=== PATIENT | male | born 1970 ===

== ENCOUNTER 2018-08-09 05:58 | Day surgery (SDC) | payer MEDICAID ==
[2018-08-08 10:57] VITALS: BMI 27.4
[2018-08-09] MEDS ORDERED: Clindamycin 600mg/50ml NS 0 MG/0 ML BAG IVPB ONE (07:29)
[2018-08-09] MEDS ORDERED: Bacitracin 50,000 UNIT in Sodium Chloride 0.9% Irrig 1,000 ML IR SCH (07:30)
[2018-08-09 07:34] LABS: EOS % 0.7 % (0.0-4.0); HEMOGLOBIN 14.2 g/dL (12.0-18.0); LYMPH # 1.6 K/uL (1.0-4.3); LYMPH % 52.8 % (20.0-40.0); MEAN CELL VOLUME 85.3 fL (80.0-94.0); MEAN CORPUSCULAR HEMOGLOBIN 29.2 pg (27.0-31.0); MEAN CORPUSCULAR HGB CONC 34.2 g/dL (33.0-37.0); MEAN PLATELET VOLUME 7.6 fL (7.2-11.7); MONO # 0.4 K/uL (0.0-0.8); MONO % 14.2 % (0.0-10.0); NEUT # 0.9 K/uL (1.8-7.0); NEUT % 28.9 % (50.0-75.0); RBC 4.87 Mil/uL (4.40-5.90); WHITE BLOOD COUNT 3.1 K/uL (4.8-10.8)
[2018-08-09 07:37] LABS: BASO % 1.3 % (0.0-2.0)
[2018-08-09 07:41] LABS: BLOOD UREA NITROGEN 15 mg/dL (9-20); CALCIUM 8.6 mg/dl (8.6-10.4); GFR NON-AFRICAN AMERICAN > 60
[2018-08-09] MEDS ORDERED: cefTRIAXone 1 gm 0 GM/0 ML BAG IVPB ONE (07:43)
[2018-08-09] MEDS ORDERED: Midazolam 2 MG/2 ML VIAL ONE (07:47)
[2018-08-09] MEDS ORDERED: Propofol 10 mg/ml Inj (20 ML) ONE (07:47)
[2018-08-09] MEDS ORDERED: Gentamicin 160 MG in Sodium Chloride 0.9% 100 ML IVPB ONE (07:50)
[2018-08-09] MEDS ORDERED: Vancomycin 1 gm/D5W 200 ml 1 GM/200 ML BAG IVPB ONE (08:02)
[2018-08-09] MEDS ORDERED: Neostigmine Methylsulfate 3mg/3ml Syringe IV ONE (10:38)
[2018-08-09] MEDS ORDERED: Lactated Ringer's 1,000 ML IV ONE (10:53)
[2018-08-09] MEDS ORDERED: HYDROmorphone 0.5 mg/0.5 ml ISec IVP PRN (10:56)
[2018-08-09] MEDS ORDERED: Dexamethasone 4 mg/1 ml IVP PRN (10:56)
[2018-08-09 13:55] VITALS: RESP 16
[2018-08-09 16:41] VITALS: BP 152/88; PULSE 102; TEMP 97.6; O2SAT 98
--- NOTE | 2018-08-12 20:50 | CARD ---
APPROVED REPORT Date of service: 08/09/2018 EKG Measurement Heart [id number] <Conclusion> Normal sinus rhythm Normal ECG
--- NOTE | 2018-08-25 08:58 | HP ---
UROLOGY ADMISSION HISTORY AND PHYSICAL REASON FOR ADMISSION: Treatment of erectile dysfunction. The patient has multiple medical issues, particularly diabetes mostly. He has erectile dysfunction secondary to this. We tried multiple medical therapies. All the therapies have been tried with no success. We tried injection therapy with some improvement and success, but the patient is very uncomfortable with the needle, with the erection, painful. He is not successful. I tried to encouraging the patient to try vacuum therapy. He is not comfortable with this either. After multiple attempts and multiple conversations with the patient, he is not improving at all. Given his underlying diabetes, I discussed various options with him. He is now here today for inflatable penile prosthesis insertion. Insertion of an inflatable penile 3-piece device. The past medical and surgical history is listed on the chart. Underlying diabetes. No history of CT or CVA. Socially he is , comes to the hospital with his . Otherwise unremarkable . MEDICATIONS: See the chart. ALLERGIES: NONE. PHYSICAL EXAMINATION: GENERAL: Well-nourished male in no apparent distress. VITAL SIGNS: Within normal limits and included in the chart. LUNGS: Clear. HEART: Normal S1 and S2 with no cervical or axillary lymphadenopathy. ABDOMEN: Overall soft. GENITOURINARY: Normal male phallus. He actually has a mild curvature in his penis. Peyronie's . He has a normal sized male phallus. No testicular mass. His rectal exam is deferred now but previous rectal exam, 10-20 g prostate, smooth, normal. LABS: See the chart including his hemoglobin A1c. DIAGNOSES: 1. Underlying diabetes. 2. Erectile dysfunction secondary to the diabetes. ASSESSMENT AND PLAN: With this very pleasant gentleman we discussed options. He has not progressed with oral medication. He has not progressed with injection therapies. After discussing options with the patient, we discussed many options including vacuum erection device. We discussed using the injection medicine. He is not progressing. He is fairly unhappy. We have been discussing options with the patient and he is here today. We made arrangements with the [employer], the [employer] company for insertion of an inflatable 3-piece device. In preparation for today, we have had the patient see medical doctor for medical clearance. In preparation for today given the difficult nature and the fact that he has been on injection therapy and my concerns with the curvature of his penis and mild Peyronie's, I have arranged a second board certified urologist, to assist me for the procedure. In preparation for today, we will go ahead the patient prepare himself with friends on the day before. At this point, the plan is as follows: 1. Antibiotic prophylaxis. 2. We will plan for insertion of inflatable penile prosthesis. 3. Risks and benefits discussed with the patient. I discussed the risks with the patient of this not working well. We discussed risk and infection and needing removal. I also discussed with him that we have to proceed the patient by medications. Proceed by shortening of penis. But in no way will be lengthening or shortening of penis. We will follow. All details explained in length. Tree Rodríguez MD
--- NOTE | 2018-08-25 09:09 | OP ---
PROCEDURE DATE: 08/09/2018 PREOPERATIVE DIAGNOSES: Erectile dysfunction, diabetes. POSTOPERATIVE DIAGNOSES: Erectile dysfunction, diabetes. PROCEDURE: Insertion of an inflatable penile prosthesis through a penoscrotal incision. COMPLICATIONS: There were no complications. BLOOD LOSS: Less than 20 mL. At the termination of the procedure, the patient had a well-working inflatable prosthesis. SURGEON: Tree Rodríguez MD [facility] [employer] SURGEON: Camilla Rodríguez MD Given the difficult nature of the procedure, and the fact that the patient has been on injection therapy and my concerns with his curvature and mild Peyronie's disease, I have made arrangements to have an higher level teaching assistant, board certified urologist to assist me in this difficult case. The assistance was required. UROLOGY OPERATIVE FINDINGS: There are no specific abnormalities. We were overall able to insert a penile prosthesis and have it working well. See the body report. DESCRIPTION OF PROCEDURE: After obtaining informed consent, I explained to the patient risks, benefits, treatment alternatives, risk of infection, risks of bleeding, needing to be removed. Risks explained at length. We worked the patient yesterday for the above-listed procedure. Benefits of improved sexual erection. Risks also explained as mentioned above. All risks and benefits were discussed at length and after discussing the benefits, we recommended insertion of the penile prosthesis and he is here for the above procedure. After obtaining informed consent, the patient was placed on table. Routine monitors were placed. Time-outs were called. We confirmed the patient and positioning. Given the nature of the procedure, the room was kept sterile with decreased minimal as best as possible. We prepped the patient for a full ten minutes with our standard. We shaved the patient and then prepped him. I then scrubbed for another ten minutes in preparation for the surgery. We inserted a Zaldivar catheter 14-Danish via the urethra without any difficulty in the sterile field. We drained the bladder. We sent fresh urine culture. The procedure continued. We now made an incision in the penoscrotal region. I carried this down to the underlying area. We now bluntly dissected off each corporal body. It actually dissected out nicely. We placed our sutures within the corporal bodies, our stay sutures that were used when we opened and closed the corpus when we did our corporotomy. We now made a small incision, doing the same thing on the left and right side in a similar way. We made an incision. We used the dilators. We dilated up proximally and distally without really major difficulty. We stayed lateral to the urethra, directing our probe away from the urethra. relatively easily, both proximally and distally. The measurements are recorded, so we will use them for later while we insert our prosthesis. The numbers are recorded as what they did. The procedure continues. Once we had this, we did our goal pole check. They are about the same distance. There was no crossover. No metal hitting metal. It all looks very anatomically aligned nicely. We now turned our attention towards the insertion of the pump. Through the same incision, we were able to go over. We identified the pubic bone. We stayed on prior divider to go underneath the rectus muscle and inserted the reservoir. We rolled it up and were able to get underneath the rectus muscle. We checked for any abnormalities, it looked like it was well situated. We now turned our attention towards the scrotum. We placed the prosthesis down as best as we can get down to make a little scrotal pouch. We now made all connections in all our tubing and as we did so, we inflated it nicely. There was no auto-inflation, we checked for auto-inflation. Now, we connected all our connectors. We used locking device. We checked position nicely. The prosthesis was situated nicely both proximally and distally and actually fit in well. We closed the corporotomy. Using our stay sutures, it snuggles well inside. We now inflated and deflated and it really is working extremely well. The volume was recorded. reservoir. The pump inflates well up and down. We will leave it with a few extra pumps. I do want to mention that as we inserted the reservoir, I just want to mention that we had emptied the bladder, of course for thoroughness. At this point, we had a working prosthesis, we had a Zaldivar catheter draining well. We dressed the wound and we used a mummy dressing and wrapped the penis and scrotum well in a mummy fashion dressing and applied down to the skin. Overall, the patient tolerated the procedure without complication. He was brought to the recovery room in stable condition having tolerated the procedure without complication. I do want to mention that I am dictating a repeat dictation. I do want to mention that the assistance of a board certified urologist, Dr. Camilla Rodríguez or anyone was extremely needed. This would have been an otherwise very difficult situation, given the patient's history and physical exam. Tree Rodríguez MD
== END 2018-08-09 15:30 | disposition home or self-care (01) ==
LOC: C.SDS 05:58
PROVIDERS: ATTEND Urology
DX: N52.8 Other male erectile dysfunction (principal)
CPT/HCPCS: 36415; 54405; 80048; 82948; 85025; 87086; 93005; C1813; J1170; J1580; J2250; J2405; J2704; J2710; J3010; J3370; J7120